=== PATIENT | male | born 1955 | race Caucasian/White ===

== ENCOUNTER 2018-06-14 07:35 | Day surgery (SDC) | payer BC ==
--- NOTE | 2018-06-09 15:03 | HP ---
CC: Dr. Sosa; Dr. Singletary* ADMITTING HISTORY AND PHYSICAL: DATE OF ADMISSION: 06/14/18 ADMITTING DIAGNOSES: 1. Microscopic hematuria. 2. Lesion, prostatic urethra. PLANNED PROCEDURE: Transurethral resection of prostatic lesion. SURGEON: Dr. Singletary. HISTORY OF PRESENT ILLNESS: Elgin Travis is a 63-year-old former smoker who was evaluated for voiding symptoms in the form of reduced flow and increased frequency and urgency. He had tried Flomax in the past, prescribed by his brother with no real change in his voiding symptoms. Urinalysis on initial evaluation had revealed 3+ red blood cells and a flexible cystoscopy revealed mild enlargement of the prostate with papillary lesions noted in the prostatic urethra. These have an appearance suspicious for transitional cell neoplasm, although they are occurring in the prostatic urethra rather than in the urinary bladder. The bladder itself appears unremarkable. He is now being brought in for transurethral resection of the prostate lesions. He also had a CT urogram, which had revealed a 2.4-cm nodule in the lower pole of the right kidney and I have explained to him that, that may represent an early renal cell carcinoma of the kidney and at the very least will require very close followup, possible biopsy, and maybe even possible partial nephrectomy in the near future. PAST MEDICAL HISTORY: Significant for history of Hodgkin's lymphoma in 1979 and hypothyroidism. PAST SURGICAL HISTORY: Significant for appendectomy and laparotomy for the Hodgkin's lymphoma. MEDICATIONS ON ADMISSION: Levothyroxine 88 mcg daily. ALLERGIES: AMPICILLIN. SMOKING HISTORY: He is a former smoker, who quit in 1975. PHYSICAL EXAMINATION GENERAL: Reveals a pleasant, healthy-appearing, middle-aged gentleman. VITAL SIGNS: Blood pressure is 110/76; pulse 84 per minute, regular; temperature 97; oxygen saturation 98% on room air. LUNGS: Clear bilaterally. CARDIOVASCULAR: Regular rate and rhythm. S1, S2. ABDOMEN: Soft without masses. IMPRESSION: A 63-year-old former smoker with papillary lesion in the prostatic urethra. PLAN: Plan is for transurethral resection of the prostatic lesion. I have discussed the procedure in detail with Mr. Travis including possible risks of bleeding, infection, stricture formation, and altered voiding pattern. [id number]/[facility] #: [id number] [facility]
[~2018-06-14 07:35] MED LIST: Buffered Lidocaine 0.9% SYRIN* 5 ML/SYR SYRINGE INTRADERM ONE
[2018-06-14] MEDS ORDERED: cefTRIAXone(*) 2 GM ADDV.VIAL IVPB ONE (07:39)
[2018-06-14] MEDS ORDERED: Lidocaine 2% PF * 5 ML VIAL ONE ×2 (08:20→09:43)
[2018-06-14] MEDS ORDERED: Bupivacaine 0.5% PF 10 ML VIAL INJ ONE (08:20)
[2018-06-14] MEDS ORDERED: fentaNYL* 50 MCG/ML 2 ML VIAL (100 MCG VIAL) ONE (09:39)
[2018-06-14] MEDS ORDERED: Midazolam* 1 MG/ML 2 ML VIAL (2 MG) ONE (09:40)
[2018-06-14] MEDS ORDERED: Ondansetron INJ* 2 MG/ML VIAL ONE (10:33)
[2018-06-14] MEDS ORDERED: oxyCODONE/Acetamin 5/325 MG* TAB ONE (11:01)
[2018-06-14] MEDS ORDERED: Lidocaine 2% JELLY* 6 ML JELLY TOPICAL ONE (11:01)
[2018-06-14] MEDS ORDERED: chlorproMAZINE INJ* 25 MG/ML 2 ML (50 MG) IV ONE (12:00)
[2018-06-14 13:22] VITALS: BP 142/79
--- NOTE | 2018-06-14 22:51 | OP ---
CC: Fadi Sosa MD * DATE OF OPERATION: 06/14/18 - [facility] DATE OF : 55 SURGEON: Nando Singletary MD ANESTHESIOLOGIST: Dr. Tomas. ANESTHESIA: General. PRE-OP DIAGNOSES: 1. Hematuria. 2. Lesion, prostatic urethra. POST-OP DIAGNOSES: 1. Hematuria. 2. Lesion, prostatic urethra. OPERATIVE PROCEDURE: Cystoscopy, transurethral resection of lesion, prostatic urethra. BLOOD LOSS: Minimal. SPECIMEN: Papillary lesion, prostatic urethra. POSTOPERATIVE CONDITION: Stable. OPERATIVE FINDINGS: 1. Normal-appearing urethra. 2. Moderately enlarged prostate. 3. Papillary lesion arising from prostatic urethra. 4. Normal-appearing bladder. INDICATIONS: Elgin Travis is a 63-year-old gentleman who is evaluated for microscopic hematuria and was noted to have a papillary lesion in the prostatic urethra. DESCRIPTION OF PROCEDURE: After induction of general anesthesia, the patient was placed in dorsal lithotomy position. Sequential compression devices were in place and functioning. Initial cystoscopy revealed a normal-appearing urethra, there was a papillary lesion arising from the prostatic urethra just adjacent to the veru. The bladder was examined and was unremarkable with clear urine seen from the right and left orifices and no evidence of any bladder lesions. Using a biopsy forceps, sales representative adding machines biopsies were obtained from the lesion and the prostatic urethra. Next, a resectoscope was introduced and a lesion was resected and sent for histopathology. Hemostasis was secured using a coagulating current. A #22 Citizen [place] Sharma was introduced without difficulty and connected to a drainage bag. The patient tolerated the procedure satisfactorily and transferred back to the recovery area in stable condition. [id number]/[facility] #: [id number] [facility]
== END 2018-06-14 13:47 | disposition home or self-care (01) ==
LOC: OR 07:35
PROVIDERS: ATTEND Urology
DX: N34.2 Other urethritis (principal); N36.8 Other specified disorders of urethra; R31.29 Other microscopic hematuria; Z87.891 Personal history of nicotine dependence; Z85.71 Personal history of Hodgkin lymphoma; E03.9 Hypothyroidism, unspecified; N40.0 Benign prostatic hyperplasia without lower urinary tract symptoms
CPT/HCPCS: 88305; A9270-GY; J0696; J2250; J2405; J3010

== ENCOUNTER 2019-01-13 00:42 | Emergency (ER) | payer BC ==
--- NOTE | 2019-01-13 01:06 | ED ---
Palpitations / Dysrhythmia - HPI Summary HPI Summary: This patient is a 63 year old M presenting to [facility] with a chief complaint of irregular palpitations that began at approximately 0000. The patient rates the pain 0/10 in severity. Symptoms aggravated by nothing. Symptoms alleviated by nothing. Patient reports diaphoresis. Patient denies CP and SOB. Patient states he experiences these symptoms approximately once a month. Patient states these episodes resolve and he does not seek medical care for them. - History of Current Complaint Chief Complaint: EDDysrhythmPalp Time Seen by Provider: 01/13/19 00:56 Hx Obtained From: Patient Onset/Duration: Sudden Onset, Lasting Hours, Still Present Timing: Constant Severity Initially: Mild Severity Currently: Mild Aggravating: Nothing Alleviating: Nothing Associated Signs & Symptoms: Diaphoresis - Allergy/Home Medications Allergies/Adverse Reactions: Allergies Allergy/AdvReac Type Severity Reaction Status Date / Time ampicillin Allergy Hives Verified 01/13/19 01:21 PMH/Surg Hx/FS Hx/Imm Hx Previously Healthy: No Endocrine/Hematology History: Reports: Hx Thyroid Disease - ON MEDICATION FOR Denies: Hx Diabetes Cardiovascular History: Reports: Other Cardiovascular Problems/Disorders - OCCASIONAL SKIPPED BEAT Denies: Hx Hypertension History: Reports: Hx Kidney Stones - POSSIBLY IN THE PAST Denies: Hx Dialysis, Hx Renal Disease Sensory History: Denies: Hx Contacts or Glasses, Hx Hearing Aid Opthamlomology History: Denies: Hx Contacts or Glasses - Cancer History Cancer Type, Location and Year: hodgkins lymphoma 1979 - Surgical History Surgery Procedure, Year, and Place: splenectomy-ABDOMINAL EXPLORATORY. APPENDECTOMY. LYMPH NODE UNDER LEFT CLAVICLE Hx Anesthesia Reactions: No Infectious Disease History: No Infectious Disease History: Reports: Hx Shingles Denies: History Other Infectious Disease, Traveled Outside the [place] in Last 30 Days - Family History Known Family History: Positive: Other - Negative anesthesia reaction - Social History Occupation: Unemployed Lives: Alone Alcohol Use: Rare Hx Substance Use: Yes Substance Use Type: Reports: Marijuana Substance Use Comment - Amount & Last Used: DAILY Hx Tobacco Use: No Smoking Status (MU): Never Smoked Tobacco Amount Used/How Often: 1 PPD X 3 YEARS Have You Smoked in the Last Year: No Review of Systems Positive: Skin Diaphoresis Positive: Palpitations. Negative: Chest Pain Negative: Shortness Of Breath All Other Systems Reviewed And Are Negative: Yes Physical Exam - Summary Physical Exam Summary: VITAL SIGNS: Reviewed. GENERAL: Patient is a well-developed and nourished male who is lying comfortable in the stretcher. Patient is not in any acute respiratory distress. HEAD AND FACE: No signs of trauma. No ecchymosis, hematomas or skull depressions. No sinus tenderness. EYES: PERRLA, EOMI x 2, No injected conjunctiva, no nystagmus. EARS: Hearing grossly intact. Ear canals and tympanic membranes are within normal limits. MOUTH: Oropharynx within normal limits. NECK: Supple, trachea is midline, no adenopathy, no JVD, no carotid bruit, no c- spine tenderness, neck with full ROM. CHEST: Symmetric, no tenderness at palpation LUNGS: Clear to auscultation bilaterally. No wheezing or crackles. CVS: Irregular heart rate, S1 and S2 present, no murmurs or gallops appreciated. ABDOMEN: Soft, non-tender. No signs of distention. No rebound no guarding, and no masses palpated. Bowel sounds are normal. EXTREMITIES: FROM in all major joints, no edema, no cyanosis or clubbing. NEURO: Alert and oriented x 3. No acute neurological deficits. Speech is normal and follows commands. SKIN: Dry and warm Triage Information Reviewed: Yes Vital Signs On Initial Exam: Initial Vitals Temp Pulse Resp BP Pulse Ox 98.3 F 96 18 142/93 98 01/13/19 00:46 01/13/19 00:46 01/13/19 00:46 01/13/19 00:46 01/13/19 00:46 Vital Signs Reviewed: Yes Diagnostics - Vital Signs Vital Signs Temp Pulse Resp BP Pulse Ox 01/13/19 00:46 98.3 F 96 18 142/93 98 - Laboratory Result Diagrams: 01/13/19 01:18 01/13/19 01:18 Lab Statement: Any lab studies that have been ordered have been reviewed, and results considered in the medical decision making process. - EKG 0056 Cardiac Rate: NL EKG Rhythm: Atrial Fibrillation - [address] Segment: Normal Summary of EKG Findings: An EKG taken at 0056 reveals Afib at 89 BPM with no ischemic changes. 0230 Cardiac Rate: NL EKG Rhythm: Sinus Rhythm - [address] Segment: Normal Ectopy: None Summary of EKG Findings: An EKG taken at 0230 reveals nml sinus rhythm at 89 BPM with normal axis, normal intervals, and no ischemic changes. Course/Dx - Course Course Of Treatment: This patient is a 63 year old M presenting to [facility] with a chief complaint of irregular palpitations that began at approximately 0000. Physical Exam Findings: Irregular heart rate. An EKG taken at 0056 reveals Afib at 89 BPM with no ischemic changes.An EKG taken at 0230 reveals nml sinus rhythm at 89 BPM with normal axis, normal intervals, and no ischemic changes. At 0220, the patient converted to sinus rhythm spontaneously. Bloodwork obtained. In the ED course the patient was given fluids. Patient will be discharged with follow up from cardiology. The patient is agreeable with this plan. - Diagnoses Provider Diagnoses: Paroxysmal A-fib Discharge - Sign-Out/Discharge Documenting (check all that apply): Patient Departure - Discharge home Patient Received Moderate/Deep Sedation with Procedure: No - Discharge Plan Condition: Stable Disposition: HOME Patient Education Materials: A-fib (Atrial Fibrillation) (ED) Referrals: Fadi Sosa MD [Primary Care Provider] - 2 Days Matt Yoon MD [Medical Doctor] - 01/15/19 Additional Instructions: RETURN TO THE EMERGENCY DEPARTMENT FOR NEW OR WORSENING SYMPTOMS - Attestation Statements Document Initiated by Scribe: Yes Documenting Scribe: Teresa Thompson Provider For Whom Scribe is Documenting (Include Credential): Dr. Darwin Enrique MD Scribe Attestation: Teresa Avilez, scribed for Dr. Darwin Enrique MD on 01/13/19 at 0237. Status of Scribe Document: Ready
[2019-01-13] MEDS ORDERED: NS 0.9% 1000 ML** 1,000 ML IV ONE (01:08)
[2019-01-13 01:27] LABS: ABS Basophils 0.1 10^3/ul (0-0.2); ABS Eosinophils 0.2 10^3/ul (0-0.6); ABS Lymphocytes 2.2 10^3/ul (1.0-4.8); ABS Monocytes 1.2 10^3/ul (0-0.8); ABS Neutrophils 3.6 10^3/ul (1.5-7.7); ABS Nucleated RBC 0 10^3/ul; Eosinophil % 3.3 %; Hematocrit 41 % (42-52); Hemoglobin 13.8 g/dl (14.0-18.0); Lymphocyte % 29.8 %; Mean Corpuscular HGB Conc 33 g/dl (31-36); Mean Corpuscular Hemoglobin 31 pg (27-31); Mean Corpuscular Volume 93 fL (80-94); Mean Platelet Volume 8.2 fL (7.4-10.4); Nucleated Red Blood Cells % 0.1; Platelet Count 386 10^3/ul (150-450); Red Blood Count 4.44 10^6/ul (4.00-5.40); Red Cell Distribution Width 14 % (10.5-15); White Blood Count 7.4 10^3/ul (3.5-10.8)
[2019-01-13 01:40] LABS: Activated Partial Thrombo Time 32.8 seconds (26.0-36.3); INR 0.91 (0.77-1.02)
[2019-01-13 01:48] LABS: Albumin 3.9 g/dL (3.2-5.2); Albumin/Globulin Ratio 1.3 (1-3); BUN/Creatinine Ratio 27.8 (8-20); Calcium 9.3 mg/dL (8.6-10.3); EGFR African American 94.6 (>60); EGFR Non-African American 78.2 (>60); Globulin 3.1 g/dL (2-4); Magnesium 2.2 mg/dL (1.9-2.7); Potassium 3.7 mmol/L (3.5-5.0); Total Bilirubin 0.4 mg/dL (0.2-1.0)
[2019-01-13 02:21] LABS: TSH (Thyroid Stimulating Horm) 2.44 mcIU/mL (0.34-5.60)
[2019-01-13 03:00] VITALS: BP 128/81
== END 2019-01-13 03:00 | disposition home or self-care (01) ==
LOC: ED 00:42
DX: I48.0 Paroxysmal atrial fibrillation (principal); R61 Generalized hyperhidrosis; Z88.0 Allergy status to penicillin; E07.9 Disorder of thyroid, unspecified; Z87.891 Personal history of nicotine dependence
CPT/HCPCS: 36415; 80053; 83735; 84443; 84484; 85025; 85610; 85730; 93005; 96360; 99283